=== PATIENT | male | born 1985 | race Caucasian/White ===

== ENCOUNTER 2017-03-08 18:35 | Emergency (ER) | payer OTHER ==
[~2017-03-08] VITALS: Ht 149.9 cm; Wt 61.2 kg
== END 2017-03-08 19:10 | disposition home or self-care (01) ==
LOC: CED 18:35 → CFTX 18:35
DX: K02.9 Dental caries, unspecified (principal); K21.9 Gastro-esophageal reflux disease without esophagitis
CPT/HCPCS: 99283